=== PATIENT | male | born 1965 ===

== ENCOUNTER 2020-01-19 09:48 | Outpatient (REF) | payer OTHER, SELFPAY ==
[2020-01-19 12:05] LABS: Alanine Aminotransferase 14 U/L (0-40); Aspartate Amino Transferase 19 U/L (5-37); Cholesterol 168 mg/dL; Glucose Fasting 80 mg/dL (60-99); HDL Cholesterol 48 mg/dL; Iron 94 mcg/dL (45-160); LDL Cholesterol Calculated 113 mg/dl; Percent Iron Saturation 32 % (15-50); Total Iron Binding Capacity 292 mcg/dL (228-428); Triglycerides 38 mg/dL; Unsaturated Iron Binding 198 ug/dL
== END 2020-01-19 09:49 | disposition home or self-care (01) ==
LOC: HO.LAB 09:48
PROVIDERS: PCP Family Medicine; Visit Provider Family Medicine
DX: E78.00 Pure hypercholesterolemia, unspecified (principal); Z83.49 Family history of other endocrine, nutritional and metabolic diseases
CPT/HCPCS: 80061; 82947; 83540; 84450; 84460

== ENCOUNTER 2020-10-11 13:54 | Outpatient (REF) | payer OTHER, SELFPAY ==
[2020-10-13 11:36] LABS: Immunoglobulin G 1276 mg/dL (600-1640)
== END 2020-10-11 13:55 | disposition home or self-care (01) ==
LOC: HO.LAB 13:54
PROVIDERS: Absent Provider Family Medicine; PCP Family Medicine; Visit Provider Nurse Practitioner Family
DX: T78.1XXA Other adverse food reactions, not elsewhere classified, initial encounter (principal)
CPT/HCPCS: 36415; 82784; 86003